=== PATIENT | female | born 1990 | race Two or more races ===

== ENCOUNTER → 2017-11-13 | Outpatient (CLI) | payer OTHER | END | disposition home or self-care (01) | LOC: US 08:29 | DX: N91.2 Amenorrhea, unspecified (principal); N97.9 Female infertility, unspecified; R31.9 Hematuria, unspecified | CPT/HCPCS: 76830; 76856 ==

== ENCOUNTER → 2017-12-24 | Outpatient (CLI) | payer OTHER | END | disposition home or self-care (01) | LOC: US 09:53 | DX: N92.6 Irregular menstruation, unspecified (principal); N93.0 Postcoital and contact bleeding | CPT/HCPCS: 76830; 76856 ==

== ENCOUNTER 2018-02-07 10:27 | Day surgery (SDC) | payer OTHER ==
[~2018-02-07 10:27] MED LIST: LIDOCAINE 1% PF 2 ML VIAL. ID; MORPHINE SULFATE 4 MG/ML DISP.SYRIN. IV; ONDANSETRON PF 4 MG/2 ML VIAL. IV; PROCHLORPERAZINE 10 MG/2 ML VIAL. IV; ceFAZolin SODIUM 3 GM in IV DEXTROSE 5% 100 ML IV; fentaNYL PF VIAL 100 MCG/2 ML VIAL IV
[2018-02-07] MEDS: IV RINGERS,LACTATED 1000ML 1,000 ML IV ×2 (11:13→15:06)
[2018-02-07] MEDS ORDERED: PROPOFOL 20 ML IV (12:06)
[2018-02-07] MEDS ORDERED: MIDAZOLAM HCL/PF 2 MG/2 ML VIAL. (12:06)
[2018-02-07] MEDS ORDERED: fentaNYL PF VIAL 100 MCG/2 ML VIAL (12:06)
[2018-02-07] MEDS ORDERED: SEVOFLURANE 31 TO 60 MINUTES. IH (12:06)
[2018-02-07] MEDS ORDERED: DEXAMETHASONE SOD PHOS 20 MG/5 ML VIAL. (12:07)
[2018-02-07] MEDS ORDERED: ONDANSETRON PF 4 MG/2 ML VIAL. (12:07)
[2018-02-07 12:35] LABS: NEG OBC UR NEG; POS OBC UR POS; U PREG PATIENT NEGATIVE (NEG)
[2018-02-07] MEDS: oxyCODONE/APAP 5/325 1 TAB TABLET PO (14:29)
== END 2018-02-07 16:40 | disposition home or self-care (01) ==
LOC: SURG 10:27
DX: N84.0 Polyp of corpus uteri (principal)
CPT/HCPCS: 58558; 81025; 88305; J1100; J2250; J2405; J2704; J3010; J7120

== ENCOUNTER → 2021-06-09 | Outpatient (CLI) | payer OTHER ==
[2018-02-07 15:25] VITALS: BP 123/74
[~2021-06-09] MED LIST changes: -LIDOCAINE 1% PF 2 ML VIAL. ID; +MEDR10TA3 PO; -MORPHINE SULFATE 4 MG/ML DISP.SYRIN. IV; -ONDANSETRON PF 4 MG/2 ML VIAL. IV; +OXYC1TAB15 PO; -PROCHLORPERAZINE 10 MG/2 ML VIAL. IV; -ceFAZolin SODIUM 3 GM in IV DEXTROSE 5% 100 ML IV; -fentaNYL PF VIAL 100 MCG/2 ML VIAL IV
[2021-06-09 10:52] LABS: BASO # 0.1 x10^3/uL (0.0-0.2); BASO % 1 % (0-3); EOS # 0.3 x10^3/uL (0.0-0.7); EOS % 3 % (0-3); HEMATOCRIT 36.3 % (36.0-47.0); HEMOGLOBIN 12.4 g/dL (12.0-15.5); LYMPH % 17 % (24-48); MEAN CORPUSCULAR HEMOGLOBIN 29 pg (25-35); MEAN CORPUSCULAR HGB CONC 34 g/dL (31-37); MEAN CORPUSCULAR VOLUME 85 fL (79-100); MONO # 0.6 x10^3/uL (0.0-1.1); MONO % 5 % (0-9); NEUT # 8.8 x10^3/uL (1.8-7.7); NEUT % 75 % (31-73); PLATELET COUNT 369 x10^3/uL (140-400); RED BLOOD COUNT 4.26 x10^6/uL (3.50-5.40); RED CELL DISTRIBUTION WIDTH 12.9 % (11.5-14.5); WHITE BLOOD COUNT 11.8 x10^3/uL (4.0-11.0)
[2021-06-09 11:15] LABS: FREE T4 1.03 ng/dL (0.76-1.46); THYROID STIM HORMONE (TSH) 3.308 uIU/mL (0.358-3.74)
[2021-06-10 20:08] LABS: RUBELLA IGG ANTIBODY 1.57 index (Immune >0.99)
== END ==
LOC: LAB 09:56
PROVIDERS: ATTEND Obstetrics & Gynecology
DX: Z34.92 Encounter for supervision of normal pregnancy, unspecified, second trimester (principal)
CPT/HCPCS: 36415; 81220; 84439; 84443; 85025; 85660; 86592; 86703; 86762; 86787; 86803; 86850; 86900; 86901; 87340